=== PATIENT | female | born 1995 | race African-American/Black ===

== ENCOUNTER 2017-10-10 15:59 | Emergency (ER) | payer OTHER ==
[~2017-10-10] VITALS: Ht 160 cm; Wt 54.9 kg
[2017-10-10 16:23] VITALS: BP 115/65
[2017-10-10] MEDS ORDERED: SULF1TAB24 PO (16:46)
--- NOTE | 2017-10-10 16:47 | PHYS DOC ---
Past Medical History Past Medical History: No Pertinent History Past Surgical History: Alcohol Use: None Drug Use: None Adult General Chief Complaint Chief Complaint: WRIST PAIN [facility] HPI Patient is a 22 year old female presents to the emergency department stating that he has redness to her left forearm. She states that she has noticed a little spot that may have been something that better. She states that she noticed just today and has had increased pain with trying to apply pressure to the arm. Patient states her last tetanus immunization was approximately over one month ago. Patient denies any nausea or vomiting denies any fever, chills. Patient denies any drainage or discharge from the area denies any numbness or tingling into the fingers. Review of Systems Review of Systems Constitutional: Denies fever or chills [] Eyes: Denies change in visual acuity, redness, or eye pain [] HENT: Denies nasal congestion or sore throat [] Respiratory: Denies cough or shortness of breath [] Cardiovascular: No additional information not addressed in HPI [] GI: Denies abdominal pain, nausea, vomiting, bloody stools or diarrhea [] : Denies dysuria or hematuria [] Musculoskeletal: Denies back pain or joint pain [] Integument: Denies rash or skin lesions. Patient complains of redness warmth tenderness to the left forearm. Neurologic: Denies headache, focal weakness or sensory changes [] Endocrine: Denies polyuria or polydipsia [] All other systems were reviewed and found to be within normal limits, except as documented in this note. Allergies Allergies Allergies Coded Allergies Type Severity Reaction Last Updated Verified No Known Drug Allergies 10/10/17 No Physical Exam Physical Exam Constitutional: Well developed, well nourished, no acute distress, non-toxic appearance. [] HENT: Normocephalic, atraumatic, bilateral external ears normal, oropharynx moist, no oral exudates, nose normal. [] Eyes: PERRLA, EOMI, conjunctiva normal, no discharge. [] Neck: Normal range of motion, no tenderness, supple, no stridor. [] Cardiovascular:Heart rate regular rhythm, no murmur [] Lungs & Thorax: Bilateral breath sounds clear to auscultation [] Skin: Warm, dry, no erythema, no rash. Left forearm with redness and tenderness noted slight swelling noted. No drainage or discharge noted patient doesn't appear to have some type of a puncture cindy on the left lateral part of the wrist. Extremities: No tenderness, no cyanosis, no clubbing, ROM intact, no edema. [] Neurologic: Alert and oriented X 3, normal motor function, normal sensory function, no focal deficits noted. [] Psychologic: Affect normal, judgement normal, mood normal. [] Current Patient Data Vital Signs Vital Signs Date Time Temp Pulse Resp B/P (MAP) Pulse Ox O2 Delivery O2 Flow Rate FiO2 10/10/17 16:23 97.7 86 16 100 Room Air 97.7 EKG EKG [] Radiology/Procedures Radiology/Procedures [][facility] [address] [place] [address] IMAGING REPORT Signed PATIENT: ROCKY SANCHEZ ACCOUNT: [id number] : 1995 LOCATION: ER AGE: 22 SEX: F EXAM STATUS: REG ER ORD. PHYSICIAN: NATHANIEL FANG APRN REASON: pain and discomfort PROCEDURE: WRIST 3V LEFT Three-view left wrist radiographs 10/10/2017 Clinical history: Left wrist pain and swelling for 2 days. PA, lateral and oblique digital radiographs of the left wrist were obtained. No fracture or dislocation of the left wrist is seen. No significant degenerative changes are noted. Impression: No fracture or dislocation of the left wrist is seen. DICTATED and SIGNED BY: STEWART FINNEY MD DATE: 10/10/17 1648 CC: NATHANIEL FANG APRN; NO PCP ~ Course & Med Decision Making Course & Med Decision Making Pertinent Labs and Imaging studies reviewed. (See chart for details) X-ray negative per abnormality noted per radiology. Patient will be discharged on Bactrim patient was encouraged to use warm moist packs to the area several times a day. Patient was recommended to use Tylenol or ibuprofen for pain and discomfort elevation as much as possible. Signs and symptoms return back to emergency department has been provided. All questions and concerns been answered at the bedside. Recommended patient following up with her primary care physician next 3-5 days. [] Dragon Disclaimer Dragon Disclaimer This electronic medical record was generated, in whole or in part, using a voice recognition dictation system. Departure Departure Impression: Primary Impression: Cellulitis of left forearm Disposition: 01 HOME, SELF-CARE Condition: STABLE Referrals: NO PCP (PCP) Patient Instructions: Cellulitis, [id number] Additional Instructions: Activity as tolerated. Medication as prescribed. Tylenol or ibuprofen for pain and discomfort. Warm moist packs to the area several times a day to help with discomfort. Elevation as much as possible. Follow-up with the primary care physician in the next 3-5 days. Return back to the emergency department for signs and symptoms of become worse. Scripts Sulfamethoxazole/Trimethoprim (BACTRIM DS TABLET) 1 Each Tablet 1 TAB PO BID, #20 TAB Prov: NATHANIEL FANG APRN 10/10/17 NATHANIEL FANG APRN Oct 10, 2017 16:47
--- NOTE | 2017-10-10 16:52 | RAD ---
Three-view left wrist radiographs 10/10/2017 Clinical history: Left wrist pain and swelling for 2 days. PA, lateral and oblique digital radiographs of the left wrist were obtained. No fracture or dislocation of the left wrist is seen. No significant degenerative changes are noted. Impression: No fracture or dislocation of the left wrist is seen.
== END 2017-10-10 16:55 | disposition home or self-care (01) ==
LOC: ER 15:59
DX: L03.114 Cellulitis of left upper limb (principal)
CPT/HCPCS: 73110; 99284